=== PATIENT | female | born 1965 | race Caucasian/White ===

== ENCOUNTER 2016-02-27 10:13 | Emergency (ER) | payer BC ==
[~2016-02-27 10:13] MED LIST: Ecotrin325 MG PO; LISINOPRIL10 MG PO; MIDRIN 325 MG-11 CA1 PO; NORFLEX100 MG PO; TORADOL10 MG PO; VICODIN 5/500 505 MG PO; VICODIN ES 7501 TAB PO; ZOFRAN ODT4 MG SL
[2016-02-27 10:53] LABS: BASO % 0.4 % (0.0-1.0); EOS # 0.1 10*3/uL (0.0-0.4); EOS % 0.8 % (1.0-4.0); HEMATOCRIT 43.5 % (37.0-47.0); HEMOGLOBIN 14.3 g/dl (12.0-16.0); LYMPH # 1.8 10*3/uL (1.3-4.4); LYMPH % 17.3 % (27.0-41.0); MEAN CORPUSCULAR HGB 31.2 pg (27.0-31.0); MEAN CORPUSCULAR HGB CONC 32.9 g/dl (33.0-37.0); MEAN PLATELET VOLUME 9.1 fl (9.6-12.3); MONO % 9.7 % (3.0-9.0); NEUT # 7.4 10*3/uL (2.3-7.9); NEUT % 71.5 % (47.0-73.0); PLATELET COUNT AUTOMATED 275 10*3/uL (130-400); RED BLOOD COUNT 4.58 10*6/uL (4.10-5.10); RED CELL DISTRI WIDTH 12.8 % (0-14.5); WHITE BLOOD COUNT 10.3 10*3/uL (4.8-10.8)
[2016-02-27 11:06] LABS: BUN 12 mg/dl (7-24); CARBON DIOXIDE 28 mmol/L (21-32); CHLORIDE 105 mmol/L (98-107); EST GLOM FILT AFRICAN AMERICAN > 60 ml/min; GLUCOSE 104 mg/dL (65-99); SODIUM 142 mmol/L (136-145)
== END 2016-02-27 13:31 | disposition short-term general hospital (02) ==
LOC: ED 10:13
PROVIDERS: Emergency Medicine
DX: H05.011 Cellulitis of right orbit (principal); Z88.1 Allergy status to other antibiotic agents; Z88.8 Allergy status to other drugs, medicaments and biological substances; Z86.73 Personal history of transient ischemic attack (TIA), and cerebral infarction without residual deficits

== ENCOUNTER → 2016-12-08 | Outpatient (CLI) | payer OTHER | END | disposition home or self-care (01) | LOC: RAD 15:01 | DX: R22.0 Localized swelling, mass and lump, head (principal); G83.9 Paralytic syndrome, unspecified ==

== ENCOUNTER 2017-08-23 12:31 | Emergency (ER) | payer OTHER ==
[~2017-08-23] VITALS: Wt 59.0 kg
--- NOTE | ~2017-08-23 | EKG ---
[place], [place] ELECTROCARDIOGRAM REPORT NAME: REBECCA LAWS UNIT #: [id number] ROOM: DOCTOR: EPIPHANY DRAFT REPORT BIRTHDATE: [birth year] [facility] Test Date: 2017-08-23 Test Time: 12:58:26 Pat Name: REBECCA LAWS Department: Room: Gender: F Pharmaceutical Analyst: : 1965 Requested By: NIRANJAN CORTEZ Order Number: [id number] Reading MD: Lidya Arroyo MD Measurements Intervals [place] Rate: 94 P: 58 OK: 147 QRS: 79 QRSD: 93 T: 88 QT: 365 QTc: 457 Interpretive Statements Sinus rhythm Minimal ST depression, anterolateral leads Electronically Signed On 08-25-2017 11:04:31 PDT by Lidya Arroyo MD CM:EKGRPT:ELECTROCARDIOGRAM REPORT [id number] NIRANJAN WOO DRAFT REPORT NIRANJAN CORTEZ MD
[2017-08-23 13:04] LABS: BASO % 0.4 % (0.0-1.0); EOS # 0.1 10*3/uL (0.0-0.4); HEMOGLOBIN 13.7 g/dl (12.0-16.0); LYMPH # 2.1 10*3/uL (1.3-4.4); LYMPH % 27.4 % (27.0-41.0); MEAN CELL VOLUME 94.3 fl (81.0-99.0); MEAN CORPUSCULAR HGB 31.5 pg (27.0-31.0); MEAN CORPUSCULAR HGB CONC 33.4 g/dl (33.0-37.0); MEAN PLATELET VOLUME 9.2 fl (9.6-12.3); MONO # 0.6 10*3/uL (0.1-1.0); MONO % 7.9 % (3.0-9.0); NEUT # 4.8 10*3/uL (2.3-7.9); PLATELET COUNT AUTOMATED 353 10*3/uL (130-400); RED BLOOD COUNT 4.35 10*6/uL (4.10-5.10); RED CELL DISTRI WIDTH 12.8 % (0-14.5); WHITE BLOOD COUNT 7.6 10*3/uL (4.8-10.8)
[2017-08-23 13:11] LABS: ACT PARTIAL THROMBO TIME 19.8 SECONDS (20.8-31.5); INTERNATIONAL NORM RATIO 0.9 (2.0-3.5)
[2017-08-23 13:26] LABS: ALBUMIN 3.9 gm/dl (3.1-4.5); ALKALINE PHOSPHATASE 70 U/L (45-117); BUN 8 mg/dl (7-24); CHLORIDE 108 mmol/L (98-107); CREATININE 0.68 mg/dL (0.55-1.02); SGOT/AST 27 IU/L (3-35); SGPT/ALT 26 U/L (12-78); SODIUM 141 mmol/L (136-145); TOTAL PROTEIN 7.3 gm/dL (6.4-8.2); TROPONIN I < 0.015 ng/ml (<0.045)
[2017-08-23 13:27] LABS: POTASSIUM 4.2 mmol/L (3.5-5.1)
== END 2017-08-23 16:22 | disposition short-term general hospital (02) ==
LOC: ED 12:31
PROVIDERS: Emergency Medicine
DX: H53.2 Diplopia (principal); Z90.49 Acquired absence of other specified parts of digestive tract; Z90.710 Acquired absence of both cervix and uterus; Z98.890 Other specified postprocedural states; Z88.8 Allergy status to other drugs, medicaments and biological substances; Z88.1 Allergy status to other antibiotic agents; Z86.73 Personal history of transient ischemic attack (TIA), and cerebral infarction without residual deficits

== ENCOUNTER → 2017-08-30 | Outpatient (CLI) | payer OTHER | END | disposition home or self-care (01) | LOC: RESCLI 03:35 | DX: I10 Essential (primary) hypertension (principal); H11.31 Conjunctival hemorrhage, right eye ==

== ENCOUNTER → 2019-03-26 | Outpatient (CLI) | payer OTHER | END | disposition home or self-care (01) | LOC: LAB 16:14 | DX: R05 Cough (principal); R50.9 Fever, unspecified ==

== ENCOUNTER 2019-11-06 13:54 | Observation (INO) | payer OTHER ==
[~2019-11-06] VITALS: Ht 157.4 cm; Wt 60.8 kg
[2019-11-06 14:19] VITALS: BP 139/87
[2019-11-06 14:19] LABS: BASO # 0.1 10*3/uL (0.0-0.1); BASO % 0.5 % (0.0-1.0); EOS # 0.1 10*3/uL (0.0-0.4); EOS % 0.7 % (1.0-4.0); HEMATOCRIT 38.8 % (37.0-47.0); LYMPH # 2.3 10*3/uL (1.3-4.4); LYMPH % 22.1 % (27.0-41.0); MEAN CELL VOLUME 91.7 fl (81.0-99.0); MEAN CORPUSCULAR HGB 30.7 pg (27.0-31.0); MEAN CORPUSCULAR HGB CONC 33.5 g/dl (33.0-37.0); MEAN PLATELET VOLUME 9.2 fl (9.6-12.3); MONO # 0.9 10*3/uL (0.1-1.0); MONO % 8.2 % (3.0-9.0); NEUT % 67.9 % (47.0-73.0); PLATELET COUNT AUTOMATED 356 10*3/uL (130-400); RED BLOOD COUNT 4.23 10*6/uL (4.10-5.10); RED CELL DISTRI WIDTH 12.4 % (0-14.5); WHITE BLOOD COUNT 10.3 10*3/uL (4.8-10.8)
[2019-11-06 14:31] LABS: ACT PARTIAL THROMBO TIME 23.6 SECONDS (20.0-32.1); INTERNATIONAL NORM RATIO 0.9 (2.0-3.5)
[2019-11-06 14:36] LABS: ALKALINE PHOSPHATASE 81 U/L (45-117); BUN 13 mg/dl (7-24); CHLORIDE 112 mmol/L (98-107); CREATININE 0.77 mg/dL (0.55-1.02); POTASSIUM 3.6 mmol/L (3.5-5.1); SGOT/AST 13 IU/L (3-35); SGPT/ALT 27 U/L (12-78); SODIUM 143 mmol/L (136-145); TOTAL PROTEIN 7.2 gm/dL (6.4-8.2)
[2019-11-06 14:38] LABS: LIPASE 81 U/L (73-393); TROPONIN I < 0.015 ng/ml (<0.045)
[2019-11-06 14:54] VITALS: BP 149/95
[2019-11-06 15:57] VITALS: BP 148/86
[2019-11-06 16:24] VITALS: BP 164/86
--- NOTE | 2019-11-06 16:24 | NUR ---
PAIN FREE AFTER NITRO.
--- NOTE | 2019-11-06 16:57 | NUR ---
[facility] , under the services of CHELITA Eden DO with a diagnosis of CHEST PAIN. Chief complaint is DENIES C/O. Patient arrived via wheel chair from ER. Monitor applied. Initial assessment completed. Vital signs taken and recorded. CHELITA EDEN DO notified of admission to the unit. Orders received. See assessment for past medical history, medications and allergies. Patient and/or family oriented to unit. [facility] visitation policy reviewed. Clothing/patient valuable form completed. MEGAN BARR
--- NOTE | 2019-11-06 17:46 | NUR ---
DR. GÓMEZ'S OFFICE NOTIFIED OF CONSULT.
--- NOTE | 2019-11-06 19:19 | NUR ---
RECIEVED REPORT FROM PREVIOUS RN.
--- NOTE | 2019-11-06 19:43 | NUR ---
ASSUMED CARE OF PATIENT. PATIENT IS AAOX3 RESTING IN BED WITH EASY AND REGULAR RESPERS ON ROOM AIR. ASSESSMENT IS COMPLETE WITH NO C/O OR S/S OF DISTRESS NOTED AT THIS TIME. PRN TYLENOL GIVEN FOR C/O LEFT SIDED BACK/SHOULDER PAIN. BED IS LOW, LOCKED, AND CALL LIGHT IS WITHIN REACH. WILL CONTNINUE TO MONITOR, SEE INTERVENTIONS.
--- NOTE | 2019-11-06 19:43 | NUR ---
PRN NORC GIVEN FOR BACK/NECK DISCOMFORT. CALL LIGHT IS WITHIN REACH.
[2019-11-06 20:00] VITALS: BP 161/80
--- NOTE | 2019-11-06 20:43 | NUR ---
PRN TYLENOL NOT EFFECTIVE PER PATIENT. CALL LIGHT IS WITHIN REACH.
--- NOTE | 2019-11-06 21:31 | NUR ---
PRN NORCO GIVEN FOR BACK, NECK, SHOULDER DISCOMFORT. CALL LIGHT IS WITHIN REACH. WILL MONITOR.
--- NOTE | 2019-11-06 22:31 | NUR ---
PRN NORCO APPEARS EFFECTIVE, PATIENT IS SLEEPING. RESPERS EASY AND REGULAR. CALL LIGHT IS WITHIN REACH.
[2019-11-07] VITALS: BP 141/87
--- NOTE | 2019-11-07 02:00 | NUR ---
SLEEPING. RESPERS EASY AND REGULAR.
[2019-11-07 06:18] LABS: ALBUMIN 3.3 gm/dl (3.1-4.5); BASO % 0.6 % (0.0-1.0); BUN 11 mg/dl (7-24); CHLORIDE 111 mmol/L (98-107); CHOLESTEROL 203 mg/dL (<200); CREATININE 0.65 mg/dL (0.55-1.02); EOS # 0.2 10*3/uL (0.0-0.4); EOS % 3.3 % (1.0-4.0); HDL CHOLESTEROL 47 mg/dl (40-60); HEMATOCRIT 37.1 % (37.0-47.0); LDL CHOLESTEROL 124 mg/dL (9-159); LYMPH # 1.9 10*3/uL (1.3-4.4); LYMPH % 35.6 % (27.0-41.0); MEAN CORPUSCULAR HGB 30.3 pg (27.0-31.0); MEAN CORPUSCULAR HGB CONC 32.6 g/dl (33.0-37.0); MEAN PLATELET VOLUME 9.4 fl (9.6-12.3); MONO # 0.7 10*3/uL (0.1-1.0); MONO % 12.1 % (3.0-9.0); NEUT # 2.6 10*3/uL (2.3-7.9); NEUT % 48.2 % (47.0-73.0); PLATELET COUNT AUTOMATED 295 10*3/uL (130-400); RED BLOOD COUNT 3.99 10*6/uL (4.10-5.10); RED CELL DISTRI WIDTH 12.6 % (0-14.5); SGOT/AST 15 IU/L (3-35); SGPT/ALT 21 U/L (12-78); SODIUM 143 mmol/L (136-145); TOTAL PROTEIN 6.4 gm/dL (6.4-8.2); TRIGLYCERIDES 162 mg/dl (<150); VLDL CHOLESTEROL 32 mg/dL (6-40); WHITE BLOOD COUNT 5.4 10*3/uL (4.8-10.8)
[2019-11-07 06:24] LABS: ALKALINE PHOSPHATASE 67 U/L (45-117); FREE T4 0.89 ng/dl (0.76-1.46)
[2019-11-07 07:40] LABS: VITAMIN D, 25-HYDROXY 27.6 ng/mL (30-100)
--- NOTE | 2019-11-07 07:50 | NUR ---
PT RESTING IN BED. DENIES CHEST PAIN. RESP-EASY AND REGULAR. NO C/O AT THIS TIME. CALL LIGHT IN REACH. SEE SHIFT ASSESSMENT.
[2019-11-07 08:00] VITALS: BP 162/64
--- NOTE | 2019-11-07 09:00 | NUR ---
Pole Maker in to talk to patient. Patient states lives at home with alone. There are no steps in the home. Physician: alecia [facility]: [facility] [place] [facility]: none Patient's level of ADLs: INDEPENDENT Patient has working utilities: all working DME: none Follow-up physician's appointment after d/c: will be made by hospitalist nurse director upon discharge Does patient want to access PORTAL?: no Discharge plan discussed with patient, she states she lives at home, is independent in adls and ambulation, works, drives, she states she will return home when discharged. scheduled for a stress test today. case management will follow. ERIKA MOTTA
--- NOTE | 2019-11-07 09:02 | NUR ---
PT OFF THE FLOOR FOR STRESS TEST.
--- NOTE | 2019-11-07 09:30 | NUR ---
INFORMED CONSENT OBTAINED FOR EXERCISE CARDIOLITE STRESS TEST WITH DR. GÓMEZ. RESTING EKG NSR WITH A SUPINE HR OF 87 WITH BP OF 142/88 AND HR OF 95 WITH BP OF 140/90 IN STANDING POSITION. PT COMPLETED 6:00 OF A ZAC PROTOCOL WITH COMPLETION OF STAGE II AT 2.5 MPH AND 12% GRADE. REACHED A PEAK HR OF 171 WHICH IS 103% OF PREDICTED MAX WITH A PEAK BP OF 156/90. TEST TERMINATED BECAUSE OF PHYSICIAN DISCRETION. HAD NO CHEST PAIN. DEVELOPED ST DEPRESSION IN LEADS II,III,AVF AND V3-V6 THAT SUBSIDED LESS THAN A MINUTE IN RECOVERY. HAS AN AVERAGE EXERCISE TOLERANCE. LAST RECOVERY HR OF 107 WITH BP OF 142/84. TO NUCLEAR MEDICINE IN STABLE CONDITION FOR SCANNING.
[2019-11-07 12:00] VITALS: BP 163/92
--- NOTE | 2019-11-07 14:11 | NUR ---
PT MEDICATED WITH TYLENOL PO PER PRN ORDER, SEE EMAR. FOR C/O BACK OF NECK PAIN, RATES PAIN 2 ON PAIN SCALE 0-10. CALL LIGHT IN REACH.
--- NOTE | 2019-11-07 15:00 | NUR ---
SITTING IN BED. RESP-EASY AND REGULAR. MEDICATION EFFECTIVE. CALL LIGHT IN REACH.
[2019-11-07] MEDS ORDERED: VITAMIN D350 MC2 PO (15:53)
--- NOTE | 2019-11-07 16:16 | NUR ---
Discharge instructions reviewed with patient/family. Patient receptive and verbalizes understanding. Follow-up care arranged. Written instructions given to patient/family. HEPLOCK REMOVED 2X2 APPLIED. PT AMBULATORY OFF THE FLOOR FOR DISCHARGE. LAMBERTO GUZMAN
== END 2019-11-07 16:21 | disposition home or self-care (01) ==
LOC: ED 13:54 → EDHOLD 15:49 → 4E 16:30
PROVIDERS: Emergency Medicine; Internal Medicine; ADMIT Family Medicine; ATTEND Family Medicine
DX: R07.89 Other chest pain (principal); I10 Essential (primary) hypertension; R00.0 Tachycardia, unspecified; E87.8 Other disorders of electrolyte and fluid balance, not elsewhere classified; R73.9 Hyperglycemia, unspecified; E83.41 Hypermagnesemia; E87.1 Hypo-osmolality and hyponatremia; E55.9 Vitamin D deficiency, unspecified

== ENCOUNTER 2020-10-13 18:29 | Emergency (ER) | payer OTHER ==
[~2020-10-13] VITALS: Ht 154.9 cm; Wt 40.8 kg
[~2020-10-13 18:29] MED LIST changes: +VITAMIN D350 MC2 PO
[2020-10-13 19:13] LABS: BASO % 0.2 % (0.0-1.0); HEMATOCRIT 43.4 % (37.0-47.0); LYMPH # 0.8 10*3/uL (1.3-4.4); LYMPH % 14.2 % (27.0-41.0); MEAN CELL VOLUME 88.9 fl (81.0-99.0); MEAN CORPUSCULAR HGB 30.5 pg (27.0-31.0); MEAN CORPUSCULAR HGB CONC 34.3 g/dl (33.0-37.0); MEAN PLATELET VOLUME 9.6 fl (9.6-12.3); MONO # 0.4 10*3/uL (0.1-1.0); MONO % 7.8 % (3.0-9.0); NEUT # 4.3 10*3/uL (2.3-7.9); NEUT % 77.6 % (47.0-73.0); PLATELET COUNT AUTOMATED 188 10*3/uL (130-400); RED BLOOD COUNT 4.88 10*6/uL (4.10-5.10); RED CELL DISTRI WIDTH 12.5 % (0-14.5); WHITE BLOOD COUNT 5.5 10*3/uL (4.8-10.8)
[2020-10-13 19:31] LABS: ALBUMIN 3.6 gm/dl (3.1-4.5); ALKALINE PHOSPHATASE 77 U/L (45-117); BUN 12 mg/dl (7-24); CHLORIDE 96 mmol/L (98-107); CREATININE 0.65 mg/dL (0.55-1.02); LIPASE 117 U/L (73-393); POTASSIUM 3.4 mmol/L (3.5-5.1); SGOT/AST 46 IU/L (3-35); SGPT/ALT 36 U/L (12-78); SODIUM 133 mmol/L (136-145); TOTAL PROTEIN 7.2 gm/dL (6.4-8.2)
== END 2020-10-13 22:00 | disposition home or self-care (01) ==
LOC: ED 18:29
PROVIDERS: Physician Assistant
DX: U07.1 COVID-19 (principal); E86.0 Dehydration; Z88.1 Allergy status to other antibiotic agents; Z88.8 Allergy status to other drugs, medicaments and biological substances

== ENCOUNTER → 2020-10-22 | Outpatient (CLI) | payer OTHER | END | disposition home or self-care (01) | LOC: RAD 17:20 | PROVIDERS: ATTEND Physician Assistant | DX: U07.1 COVID-19 (principal) ==

== ENCOUNTER → 2020-11-04 | Outpatient (CLI) | payer OTHER | END | disposition home or self-care (01) | LOC: RESCLI 00:26 | PROVIDERS: ATTEND Internal Medicine Nephrology | DX: R53.82 Chronic fatigue, unspecified (principal); B94.8 Sequelae of other specified infectious and parasitic diseases; R11.0 Nausea; R68.81 Early satiety; Z90.49 Acquired absence of other specified parts of digestive tract; Z98.890 Other specified postprocedural states; Z88.8 Allergy status to other drugs, medicaments and biological substances; Z88.1 Allergy status to other antibiotic agents ==

== ENCOUNTER → 2021-09-21 | Outpatient (CLI) | payer OTHER | END | disposition home or self-care (01) | LOC: RAD 08:46 | PROVIDERS: ATTEND Emergency Medicine | DX: M20.12 Hallux valgus (acquired), left foot (principal); M77.32 Calcaneal spur, left foot ==

== ENCOUNTER → 2022-02-14 | Outpatient (CLI) | payer OTHER | END | disposition home or self-care (01) | LOC: MRI 08:36 | PROVIDERS: ATTEND Podiatrist | DX: M25.572 Pain in left ankle and joints of left foot (principal); C44.90 Unspecified malignant neoplasm of skin, unspecified ==

== ENCOUNTER 2023-10-17 07:25 | Observation (INO) | payer OTHER ==
[~2023-10-17] VITALS: Ht 157.4 cm; Wt 72.6 kg
[2023-10-17 07:40] VITALS: BP 143/66
[2023-10-17] MEDS ORDERED: SODIUM CHLORIDE 0.9% 100 ML IV ONE (07:50)
[2023-10-17] MEDS ORDERED: Ondansetron Hydrochloride 4 MG/2 ML VIAL IV ONE (07:50)
[2023-10-17] MEDS ORDERED: IOHEXOL 350 MG/ML 100 ML VIAL IV ONE (07:50)
[2023-10-17] MEDS ORDERED: LOSARTAN POTASS25 M1 PO (07:59)
[2023-10-17] MEDS ORDERED: SIMVASTATIN40 MG PO (07:59)
[2023-10-17 08:00] LABS: HEMATOCRIT 35.4 % (37.0-47.0); MEAN CELL VOLUME 97.3 fl (81.0-99.0); MEAN CORPUSCULAR HGB CONC 31.9 g/dl (33.0-37.0); MEAN PLATELET VOLUME 8.8 fl (9.6-12.3); PLATELET COUNT AUTOMATED 320 10*3/uL (130-400); RED BLOOD COUNT 3.64 10*6/uL (4.10-5.10); RED CELL DISTRI WIDTH 12.7 % (0-14.5); WHITE BLOOD COUNT 10.4 10*3/uL (4.8-10.8)
[2023-10-17 08:03] LABS: MANUAL DIFF REFLEX YES
[2023-10-17 08:08] LABS: ACT PARTIAL THROMBO TIME 21.4 SECONDS (20.0-32.1)
[2023-10-17 08:18] LABS: ALKALINE PHOSPHATASE 55 U/L (46-116); BUN 10 mg/dl (9-23); CHLORIDE 107 mmol/L (98-107); POTASSIUM 3.6 mmol/L (3.4-5.1); SGPT/ALT 11 U/L (5-49)
[2023-10-17 08:26] LABS: ATYPICAL LYMPHS 1 % (0-0); BURR CELLS FEW; OVALOCYTES FEW; PLATELET SUFFICIENCY NORMAL (NORMAL); POLYCHROMASIA SLIGHT; TOTAL CELLS COUNTED 100 #CELLS
[2023-10-17] MEDS ORDERED: Ondansetron Hydrochloride 4 MG/2 ML VIAL IV PRN (08:55)
[2023-10-17] MEDS ORDERED: Magnesium Hydroxide 30 ML UDC PO PRN (08:55)
[2023-10-17] MEDS ORDERED: ACETAMINOPHEN 650 MG SUPP R PRN (08:55)
[2023-10-17] MEDS ORDERED: ACETAMINOPHEN 325 MG TAB PO PRN (08:55)
[2023-10-17] MEDS ORDERED: BISACODYL 5 MG TAB PO PRN (08:55)
[2023-10-17] MEDS ORDERED: BISACODYL 10 MG SUPP R PRN (08:55)
[2023-10-17] MEDS ORDERED: Enoxaparin Sodium 40 MG/0.4 ML SYR SC SCH (10:00)
[2023-10-17 10:39] VITALS: BP 130/64
[2023-10-17] MEDS ORDERED: ATORVASTATIN CALCIUM 80 MG TAB PO SCH (11:10)
[2023-10-17] MEDS ORDERED: ASPIRIN ENTERIC COATED 81 MG TAB PO SCH (11:10)
[2023-10-17 12:22] LABS: BILIRUBIN Negative (Negative); BLOOD Negative (Negative); CLARITY Clear (Clear); COLOR Yellow (Yellow); GLUCOSE Negative (Negative); KETONE Negative (Negative); LEUKO ESTERASE 1+ (Negative); NITRITE Negative (Negative); SPECIFIC GRAVITY >= 1.030 (1.001-1.030); UROBILINOGEN 0.2 E.U./dl (0.0-1.0)
[2023-10-17 13:10] LABS: BACTERIA 1+
[2023-10-17] MEDS ORDERED: Meclizine Hydrochloride 25 MG TAB PO ONE (13:40)
[2023-10-17 13:46] VITALS: BP 137/62
[2023-10-17 18:12] VITALS: BP 139/76
[2023-10-17] MEDS ORDERED: Meclizine Hydrochloride 25 MG TAB PO SCH (22:00)
[2023-10-17 22:21] VITALS: BP 131/71
[2023-10-18 06:21] VITALS: BP 135/76
[2023-10-18 06:48] LABS: BASO % 0.5 % (0.0-1.0); EOS # 0.2 10*3/uL (0.0-0.4); EOS % 2.6 % (1.0-4.0); LYMPH # 2.5 10*3/uL (1.3-4.4); MEAN CELL VOLUME 96.2 fl (81.0-99.0); MEAN CORPUSCULAR HGB CONC 32.3 g/dl (33.0-37.0); MONO # 0.5 10*3/uL (0.1-1.0); MONO % 7.8 % (3.0-9.0); NEUT # 3.3 10*3/uL (2.3-7.9); NEUT % 50.6 % (47.0-73.0); PLATELET COUNT AUTOMATED 312 10*3/uL (130-400); RED BLOOD COUNT 4.16 10*6/uL (4.10-5.10); RED CELL DISTRI WIDTH 12.8 % (0-14.5); WHITE BLOOD COUNT 6.4 10*3/uL (4.8-10.8)
[2023-10-18] MEDS ORDERED: Loratadine/Pseudoephedrine S 1 TAB TAB PO ONE (09:35)
[2023-10-18] MEDS ORDERED: predniSONE 20 MG TAB PO ONE (09:35)
[2023-10-18] MEDS ORDERED: Losartan Potassium 25 MG TAB PO SCH (10:00)
[2023-10-18 10:03] VITALS: BP 143/72
[2023-10-18 11:22] VITALS: BP 127/64
[2023-10-18 11:22] LABS: ALKALINE PHOSPHATASE 68 U/L (46-116); BUN 9 mg/dl (9-23); CHLORIDE 107 mmol/L (98-107); CHOLESTEROL 186 mg/dL (<200); LDL CHOLESTEROL 95 mg/dL (9-159); POTASSIUM 4.3 mmol/L (3.4-5.1); SGPT/ALT 17 U/L (5-49); TOTAL PROTEIN 6.4 gm/dL (6.0-8.0); TRIGLYCERIDES 193 mg/dl (<150)
[2023-10-18] MEDS ORDERED: MECLIZINE HCL25 M2 PO (13:05)
[2023-10-18] MEDS ORDERED: ASPIRIN ADULT L81 M2 PO (13:09)
[2023-10-18] MEDS ORDERED: PREDNISONE50 MG PO (13:10)
== END 2023-10-18 16:27 | disposition home or self-care (01) ==
LOC: ED 07:25 → EDHOLD 08:30
PROVIDERS: Emergency Medicine; Student in an Organized Health Care Education/Training Program; ADMIT Student in an Organized Health Care Education/Training Program; ATTEND Student in an Organized Health Care Education/Training Program
DX: R29.90 Unspecified symptoms and signs involving the nervous system (principal); R42 Dizziness and giddiness; R00.0 Tachycardia, unspecified; D64.9 Anemia, unspecified; R73.9 Hyperglycemia, unspecified; E78.1 Pure hyperglyceridemia; E55.9 Vitamin D deficiency, unspecified; I10 Essential (primary) hypertension; Z79.899 Other long term (current) drug therapy

== ENCOUNTER → 2023-11-06 | Outpatient (CLI) | payer OTHER ==
[~2023-11-06] MED LIST changes: +ASPIRIN ADULT L81 M2 PO; +IOHEXOL 300 MG/ML 100 ML VIAL ONE; +LOSARTAN POTASS25 M1 PO; +MECLIZINE HCL25 M2 PO; +PREDNISONE50 MG PO; +SIMVASTATIN40 MG PO
== END | disposition home or self-care (01) ==
LOC: CT 02:11
PROVIDERS: ATTEND Internal Medicine
DX: H05.89 Other disorders of orbit (principal)

== ENCOUNTER → 2023-12-14 | Outpatient (CLI) | payer OTHER ==
[~2023-12-14] MED LIST changes: -IOHEXOL 300 MG/ML 100 ML VIAL ONE
== END | disposition home or self-care (01) ==
LOC: MAMMO 01:45
PROVIDERS: ATTEND Internal Medicine
DX: Z12.31 Encounter for screening mammogram for malignant neoplasm of breast (principal); R92.30 Dense breasts, unspecified

== ENCOUNTER → 2024-12-04 | Outpatient (CLI) | payer OTHER | END | disposition home or self-care (01) | LOC: RAD 13:10 | PROVIDERS: ATTEND Family Medicine | DX: M79.641 Pain in right hand (principal) ==